=== PATIENT | male | born 1975 | race Two or more races ===

== ENCOUNTER 2025-02-17 09:33 | Emergency (ER) | payer MEDICAID ==
[~2025-02-17] VITALS: Ht 165.1 cm; Wt 68.2 kg
[2025-02-17 09:45] VITALS: TEMP 98.1
[2025-02-17] MEDS ORDERED: AMOX-457 PO (10:23)
[2025-02-17] MEDS: RABIES VACCINE, HUMAN DIPLOID/PF 2.5 UNITS/ML VIAL IM. ONE (10:50)
[2025-02-17] MEDS: AMOX TR/POT CLAV 875 MG/125 MG TABLET PO ONE (10:54)
[2025-02-17] MEDS: BACITRACIN 0.9 GM PACKET OINTMENT TP ONE (10:54)
[2025-02-17] MEDS: RABIES IMMUNE GLOBULIN/PF 150 UNITS/ML 10 ML VIAL IM. ONE (10:54)
[2025-02-17] MEDS: PERTUSS(ACELL),DIPH,TET/PF 0.5 ML SYRINGE [ADULT] IM. ONE (10:55)
[2025-02-17 11:00] VITALS: BP 136/105; PULSE 111; RESP 18; O2SAT 99
== END 2025-02-17 11:21 | disposition home or self-care (01) ==
LOC: EMS 09:33
DX: S71.152A Open bite, left thigh, initial encounter (principal); F17.210 Nicotine dependence, cigarettes, uncomplicated; Z20.3 Contact with and (suspected) exposure to rabies; Z23 Encounter for immunization; W54.0XXA Bitten by dog, initial encounter; Y93.89 Activity, other specified; Y92.89 Other specified places as the place of occurrence of the external cause; Y99.8 Other external cause status
CPT/HCPCS: 90375; 90471; 90472; 90675; 90715; 96372; 99284